=== PATIENT | female | born 1970 | race Caucasian/White ===

== ENCOUNTER 2016-03-12 02:43 | Emergency (ER) | payer BC ==
--- NOTE | 2016-03-12 03:58 | Emergency Department Record ---
History of Present Illness - General Chief Complaint: Cough Stated Complaint: COUGH Time Seen by Provider: 03/12/16 03:52 Source: Patient Mode of Arrival: Ambulatory Limitations: No limitations - History of Present Illness Initial Comments: pt has productive green cough, fevers, sweats, sore throat, rhinitis Complaint: Cough, Fever, Nasal congestion, Rhinorrhea, Sore throat Onset/Timin -: Days(s) Severity scale (1-10): 5 Consistency: Constant Improves With: Nothing Worsens With: Nothing Associated Symptoms: Chills, Cough, Fever, Hoarseness, Nasal congestion, Rhinorrhea, Sore throat Treatments Prior to Arrival: None - Related Data Home Medications Medication Instructions Recorded Confirmed Last Taken Esomeprazole Magnesium [Nexium] 20 mg PO BID 03/12/16 03/12/16 03/11/16 Previous Rx's Medication Instructions Recorded Azithromycin [Zithromax] 250 mg PO DAILY #4 tab 03/12/16 Allergies Allergy/AdvReac Type Severity Reaction Status Date / Time cefaclor [From Ceclor] Allergy HIVES Verified 03/12/16 03:36 Travel Screening - Travel/Exposure Within Last 30 Days Have you traveled within the last 30 days?: No - Travel/Exposure Within Last Year Have you traveled outside the [place] in the last year?: No - Additonal Travel Details Have you been exposed to anyone with a communicable illness?: No - Travel Symptoms Symptom Screening: None Review of Systems Reviewed: No additional complaints except as noted below Constitutional: Reports: As per HPI. Denies: Chills, Fever, Malaise, Night sweats, Weakness, Weight change Eyes: Reports: As per HPI. Denies: Eye discharge, Eye pain, Photophobia, Vision change ENT: Reports: As per HPI. Denies: Congestion, Dental pain, Ear pain, Epistaxis , Hearing loss, Throat pain Respiratory: Reports: As per HPI. Denies: Cough, Dyspnea, Hemoptysis, Stridor, Wheezes Cardiovascular: Reports: As per HPI. Denies: Arrhythmia, Chest pain, Dyspnea on exertion, Edema, Murmurs, Orthopnea, Palpitations, Paroxysmal nocturnal dyspnea, Rheumatic Fever, Syncope Endocrine: Reports: As per HPI. Denies: Fatigue, Heat or cold intolerance, Polydipsia, Polyuria Gastrointestinal: Reports: As per HPI. Denies: Abdominal pain, Constipation, Diarrhea, Hematemesis, Hematochezia, Melena, Nausea, Vomiting Genitourinary: Reports: As per HPI. Denies: Abnormal menses, Discharge, Dyspareunia, Dysuria, Frequency, Hematuria, Incontinence, Retention, Urgency Musculoskeletal: Reports: As per HPI. Denies: Arthralgia, Back pain, Gout, Joint swelling, Myalgia, Neck pain Skin: Reports: As per HPI. Denies: Bruising, Change in color, Change in hair/ nails, Lesions, Pruritus, Rash Neurological: Reports: As per HPI. Denies: Abnormal gait, Confusion, Headache, Numbness, Paresthesias, Seizure, Tingling, Tremors, Vertigo, Weakness Psychiatric: Reports: As per HPI. Denies: Anxiety, Auditory hallucinations, Depression, Homicidal thoughts, Suicidal thoughts, Visual hallucinations Hematological/Lymphatic: Reports: As per HPI. Denies: Anemia, Blood Clots, Easy bleeding, Easy bruising, Swollen glands Past Medical History - SOCIAL HISTORY Smoking Status: Never smoker Alcohol Use: None Drug Use: None - RESPIRATORY Hx Respiratory Disorders: Yes Hx Pneumonia: Yes - CARDIOVASCULAR Hx Cardio Disorders: No - NEURO Hx Neuro Disorders: No - GI Hx GI Disorders: Yes Hx Reflux: Yes - Hx Genitourinary Disorders: No - ENDOCRINE Hx Endocrine Disorders: No - MUSCULOSKELETAL Hx Musculoskeletal Disorders: No - PSYCH Hx Psych Problems: No - HEMATOLOGY/ONCOLOGY Hx Hematology/Oncology Disorders: No Family Medical History Any Significant Family History?: No Family Hx Comment (NOT TO BE USED IN PLACE OF ITEMS BELOW): Sister and Daughter have RA and autoimmun disorders Physical Exam - General General Appearance: Alert, Oriented x3, Cooperative, Mild distress - Head Head exam: Normal inspection - Eye Eye exam: Normal appearance, PERRL, EOMI Pupils: Normal accommodation - ENT ENT exam: Normal exam, Mucous membranes moist, Normal external ear exam, Normal orophraynx, TM's normal bilaterally Ear exam: Normal external inspection. negative: External canal tenderness Nasal Exam: Normal inspection. negative: Discharge, Sinus tenderness Mouth exam: Normal external inspection, Tongue normal Teeth exam: Normal inspection. negative: Dental caries Throat exam: Tonsillar erythema. negative: Tonsillar exudate - Neck Neck exam: Normal inspection, Full ROM. negative: Tenderness - Respiratory Respiratory exam: Normal lung sounds bilaterally. negative: Respiratory distress - Cardiovascular Cardiovascular Exam: Regular rate, Normal rhythm, Normal heart sounds - GI/Abdominal GI/Abdominal exam: Soft, Normal bowel sounds. negative: Tenderness - Rectal Rectal exam: Deferred - exam: Deferred - Extremities Extremities exam: Normal inspection, Full ROM, Normal capillary refill. negative: Tenderness - Back Back exam: Reports: Normal inspection, Full ROM. Denies: Muscle spasm, Rash noted, Tenderness - Neurological Neurological exam: Alert, CN II-XII intact, Normal gait, Oriented X3 - Psychiatric Psychiatric exam: Normal affect, Normal mood - Skin Skin exam: Dry, Intact, Normal color, Warm Course Vital Signs 03/12/16 03:03 Temperature 97.8 F Pulse Rate [ 82 Pulse Ox Probe] Respiratory 16 Rate Blood Pressure 113/70 [Left Arm] Pulse Ox 98 Disposition Disposition: Discharge Clinical Impression: Bronchitis Disposition: Home, Self-Care Condition: (1) Good Instructions: Acute Bronchitis (ED) Additional Instructions: follow up with family doctor. return sooner if worse Prescriptions: Azithromycin [Zithromax] 250 mg PO DAILY #4 tab Forms: Patient Portal Access, Return to Work/School
[2016-03-12] MEDS: IBUPROFEN 600 MG TABLET PO ONE (04:06)
[2016-03-12 04:46] LABS: INFLUENZA A NEGATIVE (NEGATIVE); INFLUENZA B NEGATIVE (NEGATIVE)
[2016-03-12] MEDS: AZITHROMYCIN 500 MG TABLET PO ONE (04:52)
--- NOTE | 2016-03-16 09:00 | RADIOLOGY REPORT ---
EXAM: CHEST, TWO VIEWS HISTORY: CHEST PAIN. TECHNIQUE: Frontal and lateral views of the chest were obtained. Comparison: None. FINDINGS: The heart size is normal. The lungs are clear. No pneumothorax. IMPRESSION: NEGATIVE CHEST EXAMINATION. JOB NUMBER: [id number] MTDD
== END 2016-03-12 04:58 | disposition home or self-care (01) ==
LOC: ER 02:43
DX: J20.9 Acute bronchitis, unspecified (principal); R05 Cough
CPT/HCPCS: 71020; 87400; 99283

== ENCOUNTER 2017-03-10 21:16 | Emergency (ER) | payer BC ==
[2017-03-10] MEDS ORDERED: IPRATROPIUM/ALBUTEROL (0.5MG/3MG) NEB INH ONE (22:03)
[2017-03-10] MEDS ORDERED: PREDNISONE 20 MG TAB PO ONE (22:17)
--- NOTE | 2017-03-10 22:20 | Emergency Department Record ---
History of Present Illness - General Chief complaint: ENT Stated complaint: EAR PAIN, PRODUCTIVE COUGH Time Seen by Provider: 03/10/17 22:16 Source: Patient Mode of Arrival: Ambulatory Limitations: No limitations - History of Present Illness Initial comments: 46 yo female presents to ED for evaluation of wheezing, difficulty breathing, and cough symptoms for the past several days. Patient denies history of asthma or COPD, but does report that she has episodes of bronchitis almost every April. Patient denies fever symptoms but does report chills. Patient denies abdominal pain, vomiting, or urinary symptoms. MD complaint: Other (VICKIE/Wheezing) Onset/Timin -: Days(s) Location: L ear Severity scale (1-10): 9 Quality: Aching Consistency: Constant Improves with: None Worsens with: Swallowing Associated Symptoms: Cough, Pain with swallowing, Sore throat - Related Data Home Medications Medication Instructions Recorded Confirmed Last Taken Amitriptyline HCl [Amitriptyline 30 mg PO QHS 03/10/17 03/10/17 Unknown HCl] Baclofen [Baclofen] 10 mg PO TID 03/10/17 03/10/17 Unknown Cholecalciferol (Vitamin D3) 50,000 unit PO WEEKLY 03/10/17 03/10/17 Unknown [Vitamin D] Ibuprofen [Motrin 600Mg] 600 mg PO TID PRN 03/10/17 03/10/17 Unknown Pravastatin Sodium [Pravachol] 20 mg PO QHS 03/10/17 03/10/17 Unknown Topiramate [Topamax] 50 mg PO BID 03/10/17 03/10/17 Unknown Previous Rx's Medication Instructions Recorded Albuterol Sulfate [Proair Hfa] 1 - 2 puff IH .EVERY 4-6 HOURS PRN 03/10/17 #1 inhaler Azithromycin [Zithromax] 250 mg PO DAILY #4 tablet 03/10/17 Prednisone [Prednisone 20Mg] 20 mg PO TID #12 tab 03/10/17 Allergies Allergy/AdvReac Type Severity Reaction Status Date / Time cefaclor [From [facility]] Allergy HIVES Verified 03/12/16 03:36 Travel Screening - Travel/Exposure Within Last 30 Days Have you traveled within the last 30 days?: No - Travel Symptoms Symptom Screening: None Review of Systems Constitutional: Reports: Chills. Denies: Fever, Malaise, Night sweats Eyes: Denies: Eye discharge, Eye pain ENT: Reports: Congestion, Ear pain. Denies: Epistaxis Respiratory: Reports: Cough, Dyspnea, Wheezes Cardiovascular: Denies: Chest pain, Dyspnea on exertion Endocrine: Denies: Fatigue, Heat or cold intolerance Gastrointestinal: Denies: Abdominal pain, Nausea, Vomiting Genitourinary: Denies: Incontinence, Retention Musculoskeletal: Denies: Arthralgia, Back pain, Gout, Joint swelling Skin: Denies: Bruising, Change in color Neurological: Denies: Abnormal gait, Confusion, Headache, Seizure Psychiatric: Denies: Anxiety Hematological/Lymphatic: Denies: Anemia, Blood Clots Past Medical History - SOCIAL HISTORY Smoking Status: Never smoker - RESPIRATORY Hx Respiratory Disorders: Yes Hx Pneumonia: Yes - CARDIOVASCULAR Hx Cardio Disorders: No - NEURO Hx Neuro Disorders: Yes Hx Headaches: Yes - GI Hx GI Disorders: Yes Hx Reflux: Yes (multiple EGD's) - Hx Genitourinary Disorders: No - ENDOCRINE Hx Endocrine Disorders: No - MUSCULOSKELETAL Hx Musculoskeletal Disorders: No - PSYCH Hx Psych Problems: No - HEMATOLOGY/ONCOLOGY Hx Hematology/Oncology Disorders: No Family Medical History Any Significant Family History?: Yes Family Hx Comment (NOT TO BE USED IN PLACE OF ITEMS BELOW): Sister and Daughter have RA and autoimmun disorders Physical Exam - General General Appearance: Alert, Oriented x3, Cooperative, Moderate distress Limitations: No limitations - Head Head exam: Atraumatic, Normocephalic, Normal inspection Head exam detail: negative: Abrasion, Contusion, Nieves's sign, General tenderness, Hematoma, Laceration - Eye Eye exam: Normal appearance. negative: Conjunctival injection, Periorbital swelling, Periorbital tenderness, Scleral icterus - ENT Ear exam: negative: Auricular hematoma, Auricular trauma Nasal Exam: negative: Active bleeding, Discharge, Dried blood, Foreign body Mouth exam: negative: Drooling, Laceration, Muffled voice, Tongue elevation - Neck Neck exam: Normal inspection. negative: Meningismus, Tenderness - Respiratory Respiratory exam: Decreased breath sounds, Prolonged expiratory, Wheezes. negative: Rales, Respiratory distress - Cardiovascular Cardiovascular Exam: Regular rate, Normal rhythm, Normal heart sounds - GI/Abdominal GI/Abdominal exam: Soft. negative: Rebound, Rigid, Tenderness - Rectal Rectal exam: Deferred - exam: Deferred - Extremities Extremities exam: Normal inspection. negative: Pedal edema, Tenderness - Back Back exam: Denies: CVA tenderness (R), CVA tenderness (L) - Neurological Neurological exam: Alert, Normal gait, Oriented X3 - Psychiatric Psychiatric exam: Normal affect, Normal mood - Skin Skin exam: Normal color. negative: Abrasion Type of lesion: negative: abrasion Course Vital Signs 03/10/17 03/10/17 21:57 22:10 Temperature 98.5 F Pulse Rate 106 H 112 H Respiratory 18 18 Rate Blood Pressure 115/86 Pulse Ox 97 - Reevaluation(s) Reevaluation #1: 03/10/17 23:36 Influenza: Negative CXR: Small infiltrate LLL Patient was updated on all results, will initiate treatment with Zithromax as well as Prednisone and Albuterol for her wheezing symptoms. Patient was updated on all results and the plan of care, appears stable for discharge at this time. Disposition Disposition: Discharge Clinical Impression: Bronchospasm CAP (community acquired pneumonia) Qualifiers: Laterality: left Lung location: lower lobe of lung Qualified Code(s): J18.1 - Lobar pneumonia, unspecified organism Disposition: Home, Self-Care Condition: (2) Stable Instructions: Community Acquired Pneumonia (ED) Additional Instructions: Return to ED if your symptoms worsen or if you have any concerns. Zithromax, Albuterol, and Prednisone as directed. Follow-up with your family doctor in 3-5 days as directed. Prescriptions: Albuterol Sulfate [Proair Hfa] 1 - 2 puff IH .EVERY 4-6 HOURS PRN #1 inhaler PRN Reason: Difficulty In Breathing Azithromycin [Zithromax] 250 mg PO DAILY #4 tablet Prednisone [Prednisone 20Mg] 20 mg PO TID #12 tab Forms: Patient Portal Access Time of Disposition: 23:40 Quality - Quality Measures Quality Measures: N/A - Blood Pressure Screening Does Patient Have Any of the Following: No Blood Pressure Classification: Pre-Hypertensive BP Reading Systolic Measurement: 114 Diastolic Measurement: 81 Screening for High Blood Pressure: < Pre-Hypertensive BP, F/U Documented > [ G8950] Pre-Hypertensive Follow-up Interventions: Referral to alternative/primary care provider.
[2017-03-10 23:24] LABS: INFLUENZA A NEGATIVE (NEGATIVE); INFLUENZA B NEGATIVE (NEGATIVE)
[2017-03-10] MEDS ORDERED: AZITHROMYCIN 500 MG TABLET PO ONE (23:36)
--- NOTE | 2017-03-12 20:01 | RADIOLOGY REPORT ---
EXAM: CHEST 2 VIEWS HISTORY: PRODUCTIVE COUGH, WHEEZING, CONGESTION FOR TWO DAYS. TECHNIQUE: PA and lateral views. COMPARISON: Two-view chest 03/12/16. FINDINGS: Heart size at about the upper limits of normal. There is a small patch of infiltrate in the left base not seen on the prior study, presumably a small patch of pneumonitis. No new infiltrate seen on the right. No pleural effusion or pneumothorax evident. Minor spurring in the spine. IMPRESSION: 1. SMALL PATCH OF INFILTRATE LEFT BASE, PRESUMABLY REPRESENTING A SMALL PATCH OF PNEUMONITIS, NOT SEEN ON 03/12/16. FOLLOW-UP FILMS SUGGESTED TO DEMONSTRATE CLEARING. 2. MILD SPURRING IN THE SPINE. JOB NUMBER: [id number] [facility]
== END 2017-03-10 23:56 | disposition home or self-care (01) ==
LOC: ER 21:16
DX: J18.1 Lobar pneumonia, unspecified organism (principal); J98.01 Acute bronchospasm
CPT/HCPCS: 99283; 99284; 87400; 71020; 94640; J7512

== ENCOUNTER 2017-03-13 20:35 | Inpatient (IN) | payer BC ==
[2017-03-13] MEDS ORDERED: IPRATROPIUM/ALBUTEROL (0.5MG/3MG) NEB INH ONE (20:39)
[2017-03-13] MEDS ORDERED: 0.9 % SODIUM CHLORIDE 1000ML 1,000 ML IV SCH (20:45)
--- NOTE | 2017-03-13 20:45 | Emergency Department Record ---
History of Present Illness - General Chief Complaint: Cough Stated Complaint: PNEUMONIA Time Seen by Provider: 03/13/17 20:39 Source: Patient Mode of Arrival: Ambulatory Limitations: No limitations - History of Present Illness Initial Comments: 46 yo female returns to ED for evaluation of difficulty in breathing and cough symptoms. Patient was diagnosed with pneumonia 03/10/17, started on Zithromax, Prednisone, and Albuterol at that time for bronchospasm symptoms. Patient reports yearly bronchitis symptoms, but denies history of asthma/COPD. Patient reports past medical history significant for only GERD. MD Complaint: Cough, Fever Onset/Timin Severity: Moderate Consistency: Constant Improves With: Nothing Worsens With: Nothing Associated Symptoms: Denies other symptoms Treatments Prior to Arrival: Antibiotics, Other (prednsione) - Related Data Previous Rx's Medication Instructions Recorded Albuterol Sulfate [Proair Hfa] 1 - 2 puff IH .EVERY 4-6 HOURS PRN 03/10/17 #1 inhaler Azithromycin [Zithromax] 250 mg PO DAILY #4 tablet 03/10/17 Prednisone [Prednisone 20Mg] 20 mg PO TID #12 tab 03/10/17 Allergies Allergy/AdvReac Type Severity Reaction Status Date / Time cefaclor [From Ceclor] Allergy HIVES Verified 03/12/16 03:36 Review of Systems Constitutional: Reports: Chills, Fever. Denies: Malaise, Night sweats Eyes: Denies: Eye discharge, Eye pain ENT: Reports: Congestion. Denies: Dental pain Respiratory: Reports: Cough, Dyspnea, Wheezes Cardiovascular: Reports: Dyspnea on exertion. Denies: Chest pain Endocrine: Denies: Fatigue, Heat or cold intolerance Gastrointestinal: Denies: Abdominal pain, Nausea, Vomiting Genitourinary: Denies: Incontinence, Retention Musculoskeletal: Denies: Arthralgia, Back pain, Gout, Joint swelling Skin: Denies: Bruising, Change in color Neurological: Denies: Abnormal gait, Confusion, Headache, Seizure Psychiatric: Denies: Anxiety Hematological/Lymphatic: Denies: Anemia, Blood Clots Past Medical History - SOCIAL HISTORY Smoking Status: Never smoker - RESPIRATORY Hx Respiratory Disorders: Yes Hx Pneumonia: Yes - CARDIOVASCULAR Hx Cardio Disorders: No - NEURO Hx Neuro Disorders: Yes Hx Headaches: Yes - GI Hx GI Disorders: Yes Hx Reflux: Yes (multiple EGD's) - Hx Genitourinary Disorders: No - ENDOCRINE Hx Endocrine Disorders: No - MUSCULOSKELETAL Hx Musculoskeletal Disorders: No - PSYCH Hx Psych Problems: No - HEMATOLOGY/ONCOLOGY Hx Hematology/Oncology Disorders: No Family Medical History Family Hx Comment (NOT TO BE USED IN PLACE OF ITEMS BELOW): Sister and Daughter have RA and autoimmun disorders Physical Exam - General General Appearance: Alert, Oriented x3, Cooperative, Moderate distress Limitations: No limitations - Head Head exam: Atraumatic, Normocephalic, Normal inspection Head exam detail: negative: Abrasion, Contusion, Nieves's sign, General tenderness, Hematoma, Laceration - Eye Eye exam: Normal appearance. negative: Conjunctival injection, Periorbital swelling, Periorbital tenderness, Scleral icterus - ENT Ear exam: negative: Auricular hematoma, Auricular trauma Nasal Exam: negative: Active bleeding, Discharge, Dried blood, Foreign body Mouth exam: negative: Drooling, Laceration, Muffled voice, Tongue elevation - Neck Neck exam: Normal inspection. negative: Meningismus, Tenderness - Respiratory Respiratory exam: Normal lung sounds bilaterally. negative: Rales, Respiratory distress, Rhonchi, Stridor - Cardiovascular Cardiovascular Exam: Regular rate, Normal rhythm, Normal heart sounds - GI/Abdominal GI/Abdominal exam: Soft. negative: Rebound, Rigid, Tenderness - Rectal Rectal exam: Deferred - exam: Deferred - Extremities Extremities exam: Normal inspection. negative: Calf tenderness, Pedal edema, Tenderness - Back Back exam: Denies: CVA tenderness (R), CVA tenderness (L) - Neurological Neurological exam: Alert, Normal gait, Oriented X3 - Psychiatric Psychiatric exam: Normal affect, Normal mood - Skin Skin exam: Normal color. negative: Abrasion Type of lesion: negative: abrasion Course - Reevaluation(s) Reevaluation #1: 03/13/17 21:24 Labs reviewed, WBC 18.9, Glucose 162. Labs are otherwise grossly unreamrkable for an acute process. CXR: LLL infiltrate. Reevaluation #2: 03/13/17 21:33 Patient was updated on all results, will admit for failed outpatient treatment. Patient is in agreement with the plan for admission at this time. Reevaluation #3: 03/14/17 06:44 Case was discussed with Dr. [place], will admit for further evaluation. Medical Decision Making - Lab Data Result diagrams: 03/13/17 20:47 03/13/17 20:47 Disposition Disposition: Admit Clinical Impression: CAP (community acquired pneumonia) Qualifiers: Laterality: left Lung location: lower lobe of lung Qualified Code(s): J18.1 - Lobar pneumonia, unspecified organism Disposition: Still a Patient at [facility] Decision to Admit: Admit from ER Decision to Admit Date: 03/13/17 Decision to Admit Time: 21:34 Condition: (2) Stable Time of Disposition: 21:34 Quality - Quality Measures Quality Measures: N/A - Blood Pressure Screening Does Patient Have Any of the Following: No Blood Pressure Classification: Pre-Hypertensive BP Reading Systolic Measurement: 136 Diastolic Measurement: 77 Screening for High Blood Pressure: < Pre-Hypertensive BP, F/U Documented > [ G8950] Pre-Hypertensive Follow-up Interventions: Referral to alternative/primary care provider. First Hypertensive Follow-up Interventions: Referral to alternative/primary care provider.
[2017-03-13 20:55] LABS: HEMATOCRIT 40.4 % (35.0-47.0); HEMOGLOBIN 13.1 gm/dl (11.6-16.0); MEAN CELL VOLUME 84.3 fl (81-97); MEAN CORPUSCULAR HEMOGLOBIN 27.3 pg (27-33); MEAN CORPUSCULAR HGB CONC 32.4 g/dl (32-36); MEAN PLATELET VOLUME 9.2 fl (7.4-10.4); PLATELET COUNT 430 K/uL (130-400); RED BLOOD COUNT 4.79 M/uL (3.80-5.40); RED CELL DISTRIBUTION WIDTH 13.7 % (11.5-14.5); WHITE BLOOD COUNT W/O DIFF 18.9 K/uL (4.2-12.2)
[2017-03-13 21:08] LABS: BILIRUBIN,TOTAL < 0.20 mg/dL (0.2-1.0); BLOOD UREA NITROGEN 16 mg/dL (6-20); EST GLOMERULAR FILTRATION RATE > 60 mL/min
[2017-03-13 21:09] LABS: TOTAL PROTEIN 7.7 g/dL (6.6-8.7)
[2017-03-13 21:11] LABS: GLUCOSE,RANDOM 162 mg/dL (74-109)
[2017-03-13 21:13] LABS: ALB/GLOB RATIO 1.6 (1.1-1.8); ALBUMIN 4.7 g/dL (4.0-5.0); ALKALINE PHOSPHATASE 120 U/L (35-104); ALT/SGPT 51 U/L (<33); AST/SGOT 19 U/L (10.0-35.0)
[2017-03-13] MEDS: IBUPROFEN 600 MG TABLET PO PRN (23:29)
[2017-03-14] MEDS: LEVOFLOXACIN/D5W 750 MG/150 ML BAG IVPB SCH ×2 (00:21→00:34)
[2017-03-14] MEDS: AMITRIPTYLINE 10 MG TAB PO SCH ×2 (00:26→22:50)
[2017-03-14] MEDS: BACLOFEN 10 MG TABLET PO SCH ×5 (00:27→22:50)
[2017-03-14] MEDS: PANTOPRAZOLE SODIUM 40 MG TABLET PO SCH ×3 (00:27→15:48)
[2017-03-14] MEDS: SIMVASTATIN 10MG TABLET PO SCH ×2 (00:28→22:50)
[2017-03-14] MEDS: TOPIRAMATE 25MG TABLET PO SCH ×4 (00:29→22:50)
[2017-03-14] MEDS: BENZONATATE 100 MG CAPSULE PO PRN ×3 (05:22→22:50)
[2017-03-14] MEDS: IBUPROFEN 600 MG TABLET PO PRN ×3 (05:24→22:50)
[2017-03-14] MEDS: IPRATROPIUM/ALBUTEROL (0.5MG/3MG) NEB INH PRN ×2 (05:41→18:41)
[2017-03-14] MEDS ORDERED: PANTOPRAZOLE SODIUM 40 MG TABLET PO SCH (06:00)
[2017-03-14] MEDS ORDERED: METHYLPREDNISOLONE PF 125MG/VIAL IVP SCH (10:00)
[2017-03-14] MEDS: 0.9 % SODIUM CHLORIDE 1000ML 1,000 ML IV PRN ×2 (10:14→18:31)
[2017-03-14] MEDS: ACETAMINOPHEN 500 MG TABLET PO PRN ×2 (10:21→18:56)
[2017-03-14] MEDS: METHYLPREDNISOLONE PF 125MG/VIAL IVP SCH ×2 (15:37→22:50)
[2017-03-14] MEDS: ENOXAPARIN 40 MG/0.4 ML SYR SQ SCH (18:56)
--- NOTE | 2017-03-14 19:13 | RADIOLOGY REPORT ---
EXAM: CHEST 2 VIEWS HISTORY: DIFFICULTY IN BREATHING. TECHNIQUE: Frontal and lateral views of the chest were performed. FINDINGS: Heart size is normal. No pulmonary vascular congestion. There is infiltrate in the left lower lobe. Findings are likely related to pneumonia. No pleural effusion. IMPRESSION: LEFT LOWER LOBE INFILTRATE. FINDINGS ARE LIKELY RELATED TO PNEUMONIA. FOLLOW-UP TO RESOLUTION. JOB NUMBER: [id number] MTDD
[2017-03-15] MEDS: LEVOFLOXACIN/D5W 750 MG/150 ML BAG IVPB SCH ×2 (00:05→17:52)
[2017-03-15] MEDS: 0.9 % SODIUM CHLORIDE 1000ML 1,000 ML IV PRN ×2 (03:22→11:40)
[2017-03-15] MEDS: PANTOPRAZOLE SODIUM 40 MG TABLET PO SCH ×2 (06:25→17:03)
[2017-03-15] MEDS: METHYLPREDNISOLONE PF 125MG/VIAL IVP SCH ×3 (06:25→21:24)
[2017-03-15] MEDS: IPRATROPIUM/ALBUTEROL (0.5MG/3MG) NEB INH PRN ×2 (09:04→13:26)
[2017-03-15] MEDS: ENOXAPARIN 40 MG/0.4 ML SYR SQ SCH (09:27)
[2017-03-15] MEDS: BENZONATATE 100 MG CAPSULE PO PRN ×3 (09:27→23:05)
[2017-03-15] MEDS: TOPIRAMATE 25MG TABLET PO SCH ×2 (09:27→21:23)
[2017-03-15] MEDS: BACLOFEN 10 MG TABLET PO SCH ×3 (09:27→21:25)
[2017-03-15] MEDS: ACETAMINOPHEN 500 MG TABLET PO PRN ×3 (09:28→23:05)
--- NOTE | 2017-03-15 11:10 | History and Physical Report ---
CHIEF COMPLAINT: Cough, dyspnea, pneumonia. HISTORY OF PRESENT ILLNESS: This 46-year-old female presented to the emergency department twice, seeing Dr. Holt both times. She was initially started on azithromycin, prednisone, and albuterol but the coughing got so bad she came back for reevaluation. Her first evaluation was 03/10/2017 and the second evaluation was last night on 03/13/2017 at 2040 hours. She was admitted for pneumonia, left lower lobe, and for IV antibiotics and breathing treatments and further evaluation. She was switched over to Levaquin today at 750 once a day. Chest x-ray showing left lower lobe infiltrate. The flu was negative. Today she states she is breathing better. PAST MEDICAL HISTORY: Gastroesophageal reflux disease. She has had MRSA in the past, 2010. PAST SURGICAL HISTORY: Hysterectomy, oophorectomy, tonsils, and appendectomy. MEDICATIONS: 1. Topamax 50 mg b.i.d. 2. Prednisone 20 mg b.i.d. for 5 days. 3. Pravachol 20 mg at bedtime. 4. Motrin 600 mg t.i.d. 5. Nexium 20 mg b.i.d. 6. Vitamin D3, 50,000 units weekly. 7. Baclofen 10 mg t.i.d. 8. Azithromycin 250 daily. 9. Amitriptyline 30 mg at bedtime. 10. Albuterol 1-2 puffs q.4 h. Her primary doctor is Dr. Caruso. ALLERGIES: CECLOR. FAMILY/PSYCHOSOCIAL HISTORY: Sister and daughter have rheumatoid arthritis and autoimmune disorders, otherwise no significant family history. She has never smoked. No drug or alcohol use. REVIEW OF SYSTEMS: See Chief Complaint. She does have congestion, cough, and a sore throat. Cardiovascular: No chest pain, palpitations, or arrhythmia. Respiratory: She has cough, shortness of breath, and wheezing. Gastrointestinal: No nausea, vomiting, diarrhea, black stools, or bloody stools. Genitourinary: No dysuria, hematuria, frequency, or burning on urination. Musculoskeletal: No joint or bone abnormalities. Neurological: No CVA, paralysis, or paresthesias. Endocrine: No diabetes disease. Integument: No rash, ulcers, change in moles, or yellow skin. PHYSICAL EXAMINATION: VITALS: Height 5 feet 2 inches, weight 219 pounds. Temperature 98.3, pulse 99, blood pressure 136/77, respiratory rate 17, pulse ox 95% on room air. HEENT: Pupils are equal, round, and reactive to light and accommodation. Extraocular muscles are intact. Throat is clear. Nose is clear. Tympanic membranes are cruz. NECK: Supple. No jugular venous distention. No hepatojugular reflux. No carotid bruits. Thyroid is smooth. CARDIOVASCULAR: Regular rate and rhythm without murmurs, clicks, rubs, or gallops. RESPIRATORY: Clear to auscultation and percussion. ABDOMEN: Soft, nontender. No hepatosplenomegaly, no masses, no tenderness. Bowel sounds are active. EXTREMITIES: No pitting edema. No cyanosis, no clubbing. Full range of motion. Peripheral pulses are good. GYNECOLOGICAL: Exam deferred. RECTAL: Exam deferred. GENITALIA: Deferred. NEUROLOGIC: Cranial nerves II-XII intact. No gross defects. Sensation normal, strength normal. Deep tendon reflexes equal bilaterally with Babinski negative. MENTAL STATUS: Alert and oriented x3. IMPRESSION: 1. Left lower lobe pneumonia. 2. Dyspnea. 3. Cough. PLAN: IV Levaquin, Solu-Medrol, and IV fluids. INPATIENT CERTIFICATION: Admit to inpatient care. Based on my medical assessment, after consideration of patient risk factors, age, comorbidities, and patient's presenting symptoms, I expect that this patient will remain in the hospital greater than or equal to 2 midnights and the services needed will warrant inpatient care because of antibiotics. Estimated length of stay 3 days. Patient may reasonably be expected to be discharged or transferred to a hospital within 96 hours after admission to [facility]. I certify that my determination is in accordance with my understanding of Medicare requirements for reasonable and necessary inpatient services. CLAUDIA
[2017-03-15] MEDS: NEOMYCIN/POLYMYXIN B SULF/HC 10ML BTL OT SCH ×3 (14:56→21:23)
[2017-03-15] MEDS: IBUPROFEN 600 MG TABLET PO PRN ×2 (14:58→21:26)
[2017-03-15] MEDS: AMITRIPTYLINE 10 MG TAB PO SCH (21:24)
[2017-03-15] MEDS: SIMVASTATIN 10MG TABLET PO SCH (21:25)
[2017-03-16] MEDS: METHYLPREDNISOLONE PF 125MG/VIAL IVP SCH (06:25)
[2017-03-16] MEDS: PANTOPRAZOLE SODIUM 40 MG TABLET PO SCH (06:26)
[2017-03-16] MEDS: IBUPROFEN 600 MG TABLET PO PRN (06:31)
--- NOTE | 2017-03-16 08:28 | Discharge Note ---
VTE H&P Assessment - Risk for VTE Risk for VTE: Yes Risk Level: Moderate Risk Assessment Date: 03/14/17 Risk Assessment Time: 18:00 VTE Orders Placed or Will Be Placed: Yes Discharge Medications - Discharge Medications Prescriptions: Benzonatate [Tessalon Perles] 200 mg PO TID PRN #30 capsule PRN Reason: Cough Ibuprofen [Motrin 600Mg] 600 mg PO TID PRN #60 tablet PRN Reason: Pain - General Levofloxacin [Levaquin Tab] 500 mg PO DAILY #7 tab Neomycin/Polymyxin B Sulf/Hc [Cortisporin Otic] 4 drop OT QID #1 bottle Prednisone [Prednisone 10Mg] 10 mg PO ASDIR #30 tab Home Medications: Ambulatory Orders Esomeprazole Magnesium [Nexium] 20 mg PO BID 03/12/16 [Last Taken 03/11/16] Albuterol Sulfate [Proair Hfa] 1 - 2 puff IH .EVERY 4-6 HOURS PRN #1 inhaler 07/21 [Last Taken Unknown] Amitriptyline HCl 30 mg PO QHS 03/10/17 [Last Taken Unknown] Baclofen 10 mg PO TID 03/10/17 [Last Taken Unknown] Cholecalciferol (Vitamin D3) [Vitamin D3] 50,000 unit PO WEEKLY 03/10/17 [Last Taken Unknown] Pravastatin Sodium [Pravachol] 20 mg PO QHS 03/10/17 [Last Taken Unknown] Topiramate [Topamax] 50 mg PO BID 03/10/17 [Last Taken Unknown] Acetaminophen [Tylenol 500Mg Tab] 1,000 mg PO Q6H PRN tablet 03/16/17 [Last Taken Unknown] Benzonatate [Tessalon Perles] 200 mg PO TID PRN #30 capsule 03/16/17 [Last Taken Unknown] Ibuprofen [Motrin 600Mg] 600 mg PO TID PRN #60 tablet 03/16/17 [Last Taken Unknown] Levofloxacin [Levaquin Tab] 500 mg PO DAILY #7 tab 03/16/17 [Last Taken Unknown] Neomycin/Polymyxin B Sulf/Hc [Cortisporin Otic] 4 drop OT QID #1 bottle [Last Taken Unknown] Prednisone [Prednisone 10Mg] 10 mg PO ASDIR #30 tab 03/16/17 [Last Taken Unknown ] Discharge Note - Date Date of Discharge Note: 03/16/17 Disposition: Home, Self-Care Condition: (2) Stable Additional Instructions: follow up with Dr. Hair in 4 days off work 4 more days Forms: Patient Portal Access
[2017-03-16] MEDS: ENOXAPARIN 40 MG/0.4 ML SYR SQ SCH (10:02)
[2017-03-16] MEDS: BACLOFEN 10 MG TABLET PO SCH (10:02)
[2017-03-16] MEDS: TOPIRAMATE 25MG TABLET PO SCH (10:03)
[2017-03-16] MEDS: LEVOFLOXACIN/D5W 750 MG/150 ML BAG IVPB SCH ×2 (11:00→11:39)
[2017-03-16] MEDS: ACETAMINOPHEN 500 MG TABLET PO PRN (11:40)
[2017-03-16] MEDS: BENZONATATE 100 MG CAPSULE PO PRN (11:40)
--- NOTE | 2017-03-16 12:40 | Discharge Summary ---
DATE OF ADMISSION: 03/13/2017 DATE OF DISCHARGE: 03/16/2017 DISCHARGE DIAGNOSES: 1. Left lower lobe pneumonia. 2. Left otitis externa. 3. Status post GERD. 4. Status post hypercholesterolemia. ATTENDING PHYSICIAN: Mitchell Birmingham DO REASON FOR HOSPITALIZATION: Cough, dyspnea, and congestion. HISTORY: Patient was seen twice in the Emergency Department by Dr. Gomez. The second time, she was admitted to the hospital for IV Solu-Medrol, breathing treatments, oxygen therapy, and IV antibiotics. Chest x-ray showed a left lower lobe infiltrate. The flu swab was negative. SIGNIFICANT FINDINGS FROM EXAMINATION: Chest x-ray showed left lower lobe infiltrate. Findings are likely related to pneumonia. Followup resolution, so she will need a chest x-ray done in 6 weeks to confirm this has resolved. LABORATORY: 18,000 white count, hemoglobin was 13.1. BUN is 16, creatinine is 1. The influenza was done through the Emergency Department, which was negative. She has mycoplasma titers pending. THERAPY PROVIDED: The patient was given IV Levaquin and Solu-Medrol IV 60 mg every 8 hours. She was also given IV fluids and occasional breathing treatment and Tessalon Perles for cough. HOSPITAL COURSE: Patient gradually improved, however she developed a left otitis externa. Started on Cortisporin Otic drops 4 drops 4 times a day. Gradually improving. CONDITION AT DISCHARGE: Improved. DISCHARGE INSTRUCTIONS: Follow up with Dr. Caruso in 4 days. Off work for 4 more days. Cortisporin Otic suspension 4 drops 4 times a day, Levaquin 500 mg for 7 days. Prednisone 40 mg taper starting with 10 mg pills, so it is 4 pills a day for 3 days, then 3 pills a day for 3 days, 2 pills a day for 3 days, then 1 pill a day for 3 days. Continue her Ventolin inhaler 2 puffs every 4 hours, amitriptyline 30 mg at bedtime, baclofen 10 mg t.i.d. p.r.n., vitamin D 50,000 units weekly, Nexium 20 mg b.i.d., Motrin 600 mg t.i.d., Tylenol 650 every 4 hours p.r.n., Pravachol 20 mg at bedtime, and Topamax 50 mg b.i.d. MTDD
[2017-03-16] MEDS: NEOMYCIN/POLYMYXIN B SULF/HC 10ML BTL OT SCH (13:48)
== END 2017-03-16 12:50 | disposition home or self-care (01) | DRG 195 ==
LOC: ER 20:35 → MEDSURG 23:01 → OBSVTOIN 23:01
PROVIDERS: ADMIT Internal Medicine; ATTEND Emergency Medicine
DX: J18.9 Pneumonia, unspecified organism (principal); E78.00 Pure hypercholesterolemia, unspecified; H66.92 Otitis media, unspecified, left ear; K21.9 Gastro-esophageal reflux disease without esophagitis
CPT/HCPCS: 71046; 80053; 85027; 94640; 94761; 99223; 99233; 99239; 99285; J1650; J1956; J2930

== ENCOUNTER 2017-03-27 18:27 | Emergency (ER) | payer BC ==
[2017-03-27] MEDS ORDERED: LIDOCAINE 5% PATCH TOP ONE (18:48)
--- NOTE | 2017-03-27 18:56 | Emergency Department Record ---
History of Present Illness - General Chief complaint: Pain Stated complaint: RT RIB AN ABDOMINAL PAIN Time Seen by Provider: 03/27/17 18:30 Source: Patient Mode of Arrival: Ambulatory Limitations: No limitations - History of Present Illness Initial comments: 46 yo female presents to ED for evaluation of right rib pain for the past 3-4 days. Patient denies recent injury, but does report recent admission of LLL pneumonia symptoms 2 weeks ago. Patient reports pain with movement, coughing, or deep inspirations. Patient denies abdominal pain on examination. MD Complaint: Other (right lower rib pain) Onset/Timin -: Days(s) Location: Right History of Same: No Radiation: None Quality: Sharp, Stabbing Consistency: Intermittent Improves with: Rest Worsens with: Other (movement, deep inspiration) - Related Data Home Medications Medication Instructions Recorded Confirmed Last Taken Ondansetron [Zofran Odt] 4 mg PO Q8H 03/27/17 03/27/17 03/27/17 Previous Rx's Medication Instructions Recorded Albuterol Sulfate [Proair Hfa] 1 - 2 puff IH .EVERY 4-6 HOURS PRN 03/10/17 #1 inhaler Acetaminophen [Tylenol 500Mg Tab] 1,000 mg PO Q6H PRN tablet 03/16/17 Ibuprofen [Motrin 600Mg] 600 mg PO TID PRN #60 tablet 03/16/17 Lidocaine Patch [Lidoderm] 1 ea TOP DAILY #10 patch 03/27/17 Naproxen [Naprosyn] 500 mg PO BID #30 tablet 03/27/17 Allergies Allergy/AdvReac Type Severity Reaction Status Date / Time cefaclor [From [facility]] Allergy HIVES Verified 03/27/17 18:54 Travel Screening - Travel/Exposure Within Last 30 Days Have you traveled within the last 30 days?: No - Travel/Exposure Within Last Year Have you traveled outside the [place] in the last year?: No - Additonal Travel Details Have you been exposed to anyone with a communicable illness?: No - Travel Symptoms Symptom Screening: None Review of Systems Constitutional: Denies: Chills, Fever, Malaise, Night sweats Eyes: Denies: Eye discharge, Eye pain ENT: Denies: Congestion, Ear pain, Epistaxis Respiratory: Denies: Cough, Dyspnea Cardiovascular: Reports: Chest pain. Denies: Dyspnea on exertion Endocrine: Denies: Fatigue, Heat or cold intolerance Gastrointestinal: Denies: Diarrhea, Nausea, Vomiting Genitourinary: Denies: Incontinence, Retention Musculoskeletal: Denies: Arthralgia, Back pain, Gout, Joint swelling Skin: Denies: Bruising, Change in color Neurological: Denies: Confusion, Headache Psychiatric: Denies: Anxiety Hematological/Lymphatic: Denies: Anemia, Blood Clots Past Medical History - SOCIAL HISTORY Smoking Status: Never smoker Alcohol Use: None Drug Use: None - RESPIRATORY Hx Respiratory Disorders: Yes Hx Pneumonia: Yes - CARDIOVASCULAR Hx Cardio Disorders: No - NEURO Hx Neuro Disorders: Yes Hx Headaches: Yes - GI Hx GI Disorders: Yes Hx Reflux: Yes (multiple EGD's) - Hx Genitourinary Disorders: No - ENDOCRINE Hx Endocrine Disorders: No - MUSCULOSKELETAL Hx Musculoskeletal Disorders: No - PSYCH Hx Psych Problems: No - HEMATOLOGY/ONCOLOGY Hx Hematology/Oncology Disorders: No Family Medical History Any Significant Family History?: No Family Hx Comment (NOT TO BE USED IN PLACE OF ITEMS BELOW): Sister and Daughter have RA and autoimmun disorders Physical Exam - General General Appearance: Alert, Oriented x3, Cooperative, Moderate distress Limitations: No limitations - Head Head exam: Atraumatic, Normocephalic, Normal inspection Head exam detail: negative: Abrasion, Contusion, Nieves's sign, General tenderness, Hematoma, Laceration - Eye Eye exam: Normal appearance. negative: Conjunctival injection, Periorbital swelling, Periorbital tenderness, Scleral icterus - ENT Ear exam: negative: Auricular hematoma, Auricular trauma Nasal Exam: negative: Active bleeding, Discharge, Dried blood, Foreign body Mouth exam: negative: Drooling, Laceration, Muffled voice, Tongue elevation - Neck Neck exam: Normal inspection. negative: Meningismus, Tenderness - Respiratory Respiratory exam: Normal lung sounds bilaterally, Chest wall tenderness (TTP right lower rib (likely rib #11/#12) on exmaination, no associated abdominal pain symptoms are present). negative: Respiratory distress, Rhonchi, Stridor, Wheezes - Cardiovascular Cardiovascular Exam: Regular rate, Normal rhythm, Normal heart sounds - GI/Abdominal GI/Abdominal exam: Soft. negative: Distended, Rebound, Rigid, Tenderness - Rectal Rectal exam: Deferred - exam: Deferred - Extremities Extremities exam: Normal inspection. negative: Calf tenderness, Pedal edema, Tenderness - Back Back exam: Denies: CVA tenderness (R), CVA tenderness (L) - Neurological Neurological exam: Alert, Normal gait, Oriented X3 - Psychiatric Psychiatric exam: Normal affect, Normal mood - Skin Skin exam: Normal color. negative: Abrasion Type of lesion: negative: abrasion Course Vital Signs 03/27/17 18:45 Temperature 98.1 F Pulse Rate [ 100 H Pulse Ox Probe] Respiratory 24 Rate Blood Pressure 125/87 [Left Arm] Pulse Ox 98 - Reevaluation(s) Reevaluation #1: 03/27/17 19:29 Labs reviewed and are grossly unremarkable for an acute process, negative D- Dimer. CXR ordered for further evaluation of the patient's right lower rib pain symptoms. Reevaluation #2: 03/27/17 20:01 CXR: Persistent infiltrate LLL Healed rib fractures left without evidence for acute process Patient was updated on all results, repeat abdominal examination is benign. Patient appears stable for discharge with treatment for probable rib strain as directed. Medical Decision Making - Lab Data Result diagrams: 03/27/17 19:02 03/27/17 19:02 Disposition Disposition: Discharge Clinical Impression: Rib pain on right side Disposition: Home, Self-Care Condition: (2) Stable Instructions: Rib Contusion (ED) Additional Instructions: Return to ED if your symptoms worsen or if you have any concerns. Lidoderm patches and Naprosyn as directed. Follow-up with your family doctor in 3-5 days as directed. Prescriptions: Lidocaine Patch [Lidoderm] 1 ea TOP DAILY #10 patch Naproxen [Naprosyn] 500 mg PO BID #30 tablet Forms: Patient Portal Access Time of Disposition: 19:31 Quality - Quality Measures Quality Measures: N/A - Blood Pressure Screening Does Patient Have Any of the Following: No Blood Pressure Classification: Pre-Hypertensive BP Reading Systolic Measurement: 125 Diastolic Measurement: 87 Screening for High Blood Pressure: < Pre-Hypertensive BP, F/U Documented > [ G8950] Pre-Hypertensive Follow-up Interventions: Referral to alternative/primary care provider.
[2017-03-27 19:09] LABS: BASO % 0.5 % (0-6); EOS % 1.1 % (0-6); GRAN % 61.8 % (47-80); HEMATOCRIT 37.9 % (35.0-47.0); HEMOGLOBIN 12.1 gm/dl (11.6-16.0); LYMPH % 29.9 % (16-45); MEAN CELL VOLUME 85.2 fl (81-97); MEAN CORPUSCULAR HEMOGLOBIN 27.2 pg (27-33); MEAN CORPUSCULAR HGB CONC 31.9 g/dl (32-36); MONO % 6.7 % (0-9); PLATELET COUNT 252 K/uL (130-400); RED BLOOD COUNT 4.45 M/uL (3.80-5.40); RED CELL DISTRIBUTION WIDTH 13.9 % (11.5-14.5); WHITE BLOOD COUNT W/O DIFF 7.6 K/uL (4.2-12.2)
[2017-03-27 19:22] LABS: BLOOD UREA NITROGEN 22 mg/dL (6-20); CREATININE 0.7 mg/dL (0.5-0.9); EST GLOMERULAR FILTRATION RATE > 60 mL/min
[2017-03-27 19:23] LABS: TOTAL PROTEIN 7.3 g/dL (6.6-8.7)
[2017-03-27 19:25] LABS: GLUCOSE,RANDOM 96 mg/dL (74-109)
[2017-03-27 19:28] LABS: ALB/GLOB RATIO 1.6 (1.1-1.8); ALBUMIN 4.5 g/dL (4.0-5.0); ALKALINE PHOSPHATASE 103 U/L (35-104); ALT/SGPT 32 U/L (<33); AST/SGOT 16 U/L (10.0-35.0); LIPASE 77 U/L (13-60)
--- NOTE | 2017-03-27 20:03 | RADIOLOGY REPORT ---
EXAM: CHEST 2 VIEWS HISTORY: RIGHT RIB PAIN SINCE LAST WEEK. TECHNIQUE: PA and lateral upright views of the chest were obtained. COMPARISON: 03/13/2017. FINDINGS: The heart, mediastinum, and pulmonary vasculature are normal. There is persistent infiltrate at the left lung base consistent with pneumonia. This appears similar to the previous examination. The remaining lung [place] are clear. There are old healed fractures involving the lateral aspects of the right third and fourth ribs. No acute fractures are identified. IMPRESSION: 1. PERSISTENT MILD INFILTRATE AT THE LEFT LUNG BASE CONSISTENT WITH PNEUMONIA. 2. OLD HEALED RIGHT RIB FRACTURES. 3. NO NEW ABNORMALITIES. JOB NUMBER: [id number] [facility]
== END 2017-03-27 20:05 | disposition home or self-care (01) ==
LOC: ER 18:27
DX: R07.81 Pleurodynia (principal)
CPT/HCPCS: 71046; 80053; 83690; 85025; 85379; 99283; 99284

== ENCOUNTER 2019-01-30 11:16 | Emergency (ER) | payer BC ==
--- NOTE | 2019-01-30 11:57 | Emergency Department Record ---
History of Present Illness - General Chief Complaint: Laceration(s) Stated Complaint: LAC MIDDLE FINGER Time Seen by Provider: 01/30/19 11:41 Source: Patient, RN notes reviewed Mode of Arrival: Ambulatory - History of Present Illness Initial Commments: laceration of the index finger pad and side of finger tip last tetnus shot 10 years ago and she cut it at home on he furnance filter Onset/Timin -: Minutes(s) - [place] Coma Scale Eye Response: (4) Open spontaneously Motor Response: (6) Obeys commands Verbal Response: (5) Oriented [place] Total: 15 - Related Data Hx Tetanus Toxoid Vaccination: No Patient Tetanus UTD (within 5 yrs): No Home Medications Medication Instructions Recorded Confirmed Last Taken Doxycycline Hyclate [Vibramycin] 100 mg PO BID 01/30/19 01/30/19 01/30/19 Fluticasone/Vilanterol [Breo 1 each IH DAILY 01/30/19 01/30/19 01/30/19 Ellipta 100-25 Mcg INH] Montelukast Sodium [Singulair] 10 mg PO QHS 01/30/19 01/30/19 01/30/19 Prednisone [Prednisone 20Mg] 40 mg PO DAILY 01/30/19 01/30/19 01/30/19 Tiotropium [place] [Spiriva] 18 mcg IH DAILY 01/30/19 01/30/19 01/30/19 Previous Rx's Medication Instructions Recorded Albuterol Sulfate [Proair Hfa] 1 - 2 puff IH .EVERY 4-6 HOURS PRN 03/10/17 #1 inhaler Acetaminophen [Tylenol 500Mg Tab] 1,000 mg PO Q6H PRN tablet 03/16/17 Ibuprofen [Motrin 600Mg] 600 mg PO TID PRN #60 tablet 03/16/17 Allergies Allergy/AdvReac Type Severity Reaction Status Date / Time cefaclor [From [facility]] Allergy HIVES Verified 03/27/17 18:54 Travel Screening - Travel/Exposure Within Last 30 Days Have you traveled within the last 30 days?: No - Travel/Exposure Within Last Year Have you traveled outside the [place] in the last year?: No - Additonal Travel Details Have you been exposed to anyone with a communicable illness?: No - Travel Symptoms Symptom Screening: None Review of Systems Reviewed: No additional complaints except as noted below Constitutional: Reports: As per HPI. Denies: Chills, Fever, Malaise, Night sweats, Weakness, Weight change Eyes: Reports: As per HPI. Denies: Eye discharge, Eye pain, Photophobia, Vision change ENT: Reports: As per HPI. Denies: Congestion, Dental pain, Ear pain, Epistaxis, Hearing loss, Throat pain Respiratory: Reports: As per HPI. Denies: Cough, Dyspnea, Hemoptysis, Stridor, Wheezes Cardiovascular: Reports: As per HPI. Denies: Arrhythmia, Chest pain, Dyspnea on exertion, Edema, Murmurs, Orthopnea, Palpitations, Paroxysmal nocturnal dyspnea, Rheumatic Fever, Syncope Endocrine: Reports: As per HPI. Denies: Fatigue, Heat or cold intolerance, Polydipsia, Polyuria Gastrointestinal: Reports: As per HPI. Denies: Abdominal pain, Constipation, Diarrhea, Hematemesis, Hematochezia, Melena, Nausea, Vomiting Genitourinary: Reports: As per HPI. Denies: Abnormal menses, Discharge, Dyspareunia, Dysuria, Frequency, Hematuria, Incontinence, Retention, Urgency Musculoskeletal: Reports: As per HPI. Denies: Arthralgia, Back pain, Gout, Joint swelling, Myalgia, Neck pain Skin: Reports: As per HPI. Denies: Bruising, Change in color, Change in hair/nails, Lesions, Pruritus, Rash Neurological: Reports: As per HPI. Denies: Abnormal gait, Confusion, Headache, Numbness, Paresthesias, Seizure, Tingling, Tremors, Vertigo, Weakness Psychiatric: Reports: As per HPI. Denies: Anxiety, Auditory hallucinations, Depression, Homicidal thoughts, Suicidal thoughts, Visual hallucinations Hematological/Lymphatic: Reports: As per HPI. Denies: Anemia, Blood Clots, Easy bleeding, Easy bruising, Swollen glands Past Medical History - SOCIAL HISTORY Smoking Status: Never smoker Alcohol Use: None Drug Use: None - RESPIRATORY Hx Respiratory Disorders: Yes Hx Bronchitis: Yes Hx Pneumonia: Yes - CARDIOVASCULAR Hx Cardio Disorders: No - NEURO Hx Neuro Disorders: Yes Hx Headaches: Yes - GI Hx GI Disorders: Yes Hx Reflux: Yes (multiple EGD's) - Hx Genitourinary Disorders: No - ENDOCRINE Hx Endocrine Disorders: No - MUSCULOSKELETAL Hx Musculoskeletal Disorders: No - PSYCH Hx Psych Problems: No - HEMATOLOGY/ONCOLOGY Hx Hematology/Oncology Disorders: No Family Medical History Any Significant Family History?: No Family Hx Comment (NOT TO BE USED IN PLACE OF ITEMS BELOW): Sister and Daughter have RA and autoimmun disorders Physical Exam - General General Appearance: Alert, Oriented x3, Cooperative, No acute distress - Head Head exam: Normal inspection - Eye Eye exam: Normal appearance, PERRL Pupils: Normal accommodation - ENT ENT exam: Normal exam, Mucous membranes moist, Normal external ear exam, Normal orophraynx, TM's normal bilaterally Ear exam: Normal external inspection. negative: External canal tenderness Nasal Exam: Normal inspection. negative: Discharge, Sinus tenderness Mouth exam: Normal external inspection, Tongue normal Teeth exam: Normal inspection. negative: Dental caries Throat exam: Normal inspection. negative: Tonsillar erythema, Tonsillar exudate - Neck Neck exam: Normal inspection, Full ROM. negative: Tenderness - Respiratory Respiratory exam: Normal lung sounds bilaterally. negative: Respiratory distress - Cardiovascular Cardiovascular Exam: Regular rate, Normal rhythm, Normal heart sounds - GI/Abdominal GI/Abdominal exam: Soft, Normal bowel sounds. negative: Tenderness - Rectal Rectal exam: Deferred - exam: Deferred - Extremities Extremities exam: Normal inspection, Full ROM, Normal capillary refill. negative: Tenderness - Back Back exam: Reports: Normal inspection, Full ROM. Denies: Muscle spasm, Rash noted, Tenderness - Neurological Neurological exam: Alert, Normal gait, Oriented X3, Reflexes normal - Psychiatric Psychiatric exam: Normal affect, Normal mood - Skin Skin exam: Other (laceration finger tip 2 cm ) Course Vital Signs 01/30/19 11:25 Temperature 98.0 F Pulse Rate [ 114 H Right] Respiratory 18 Rate Blood Pressure 138/92 [Left Arm] Pulse Ox 94 L - Reevaluation(s) Reevaluation #1: 2 cm laceration of th left middle finger side and pad two point sensation good and FROM with good strength repaired with Dermabond 01/30/19 12:00 01/30/19 12:01 Disposition Clinical Impression: Laceration of finger Qualifiers: Encounter type: initial encounter Finger: middle finger Damage to nail status: without damage Foreign body presence: without foreign body Laterality: left Qualified Code(s): S61.213A - Laceration without foreign body of left middle finger without damage to nail, initial encounter Disposition: Home, Self-Care Condition: (1) Good Instructions: Skin Adhesive Care (ED) Additional Instructions: follow up with family Dr in one week Time of Disposition: 12:02 Quality - Quality Measures Quality Measures: N/A - Blood Pressure Screening Does Patient Have Any of the Following: No Blood Pressure Classification: Hypertensive Reading Systolic Measurement: 138 Diastolic Measurement: 92 Screening for High Blood Pressure: < First Hypertensive BP, F/U Documented > [G8950] First Hypertensive Follow-up Interventions: Referral to alternative/primary care provider.
[2019-01-30] MEDS: Diph,Pert(Acell),Tet Vac 0.5 ML SYR IM ONE (12:08)
== END 2019-01-30 12:23 | disposition home or self-care (01) ==
LOC: ER 11:16
DX: S61.213A Laceration without foreign body of left middle finger without damage to nail, initial encounter (principal); W26.8XXA Contact with other sharp object(s), not elsewhere classified, initial encounter; Y92.009 Unspecified place in unspecified non-institutional (private) residence as the place of occurrence of the external cause
CPT/HCPCS: 90715; 96372; 99283